=== PATIENT | male | born 1995 | race Caucasian/White ===

== ENCOUNTER 2022-08-05 15:51 | Emergency (ER) | payer SELFPAY ==
[~2022-08-05] VITALS: Ht 182.9 cm; Wt 95.4 kg
[2022-08-05 16:06] VITALS: BP 121/69
--- NOTE | 2022-08-05 16:12 | NUR ---
Jovany brandon in [facility] - 08/05/22 at 1614 by [email or web address] PT AMB TO BED 11.
--- NOTE | 2022-08-05 16:15 | NUR ---
COVID, FLU SWABS DONE.
--- NOTE | 2022-08-05 16:30 | NUR ---
BIB SELF C/O COUGH , 5/10 BODY ACHES, SORE THROAT, CROWDER X 3 DAYS.
--- NOTE | 2022-08-05 19:30 | NUR ---
PATIENT CALLED TO BE SEEN BY [facility] AT 1700HOURS, NO RESPONSE PATIENT LEFT WITHOUT BEING SEEN BY DR. MINOR. NO FURTHER CARE PROVIDED FOR PATIENT. MULTILPES CALLS MADE AT 1735 HOURS, 1755 HOURS NO , RESPONSE
== END 2022-08-05 17:00 | disposition left against medical advice (07) ==
LOC: MED 15:51
DX: R05.9 Cough, unspecified (principal); Z20.822 Contact with and (suspected) exposure to COVID-19; Z53.21 Procedure and treatment not carried out due to patient leaving prior to being seen by health care provider